=== PATIENT | female | born 1955 ===

== ENCOUNTER → 2016-08-12 | Outpatient (CLI) | payer BC ==
[~2016-08-12] MED LIST: ADVIL200 MG PO; FEMRING0.1 MG/24 VG
== END ==
LOC: COL.RAD 09:08
DX: S73.191A Other sprain of right hip, initial encounter (principal); G57.01 Lesion of sciatic nerve, right lower limb; M70.61 Trochanteric bursitis, right hip; M24.151 Other articular cartilage disorders, right hip; X58.XXXA Exposure to other specified factors, initial encounter
CPT/HCPCS: A9585; Q9967

== ENCOUNTER → 2016-08-17 | Outpatient (CLI) | payer BC | LOC: COL.RAD 07:51 | DX: M25.551 Pain in right hip (principal) | CPT/HCPCS: J3301; Q9967 ==

== ENCOUNTER → 2016-09-08 | Outpatient (CLI) | payer BC | LOC: COL.RAD 08:30 | DX: M25.551 Pain in right hip (principal); M54.5 Low back pain | CPT/HCPCS: J3301; Q9967 ==

== ENCOUNTER → 2016-11-23 | Outpatient (CLI) | payer BC | LOC: COL.RAD 13:12 | DX: M25.551 Pain in right hip (principal) | CPT/HCPCS: J3301; Q9967 ==

== ENCOUNTER → 2017-03-04 | Outpatient (CLI) | payer BC | LOC: COL.RAD 08:36 | DX: M25.552 Pain in left hip (principal) | CPT/HCPCS: J3301; Q9967 ==

== ENCOUNTER → 2017-03-31 | Outpatient (CLI) | payer BC | LOC: MC.RAD 10:33 | DX: Z12.31 Encounter for screening mammogram for malignant neoplasm of breast (principal) ==

== ENCOUNTER → 2017-11-29 | Outpatient (CLI) | payer BC | LOC: MHCPAIN 08:21 | DX: G89.29 Other chronic pain (principal); M54.16 Radiculopathy, lumbar region; M53.3 Sacrococcygeal disorders, not elsewhere classified; M47.817 Spondylosis without myelopathy or radiculopathy, lumbosacral region | CPT/HCPCS: G0463 ==

== ENCOUNTER 2018-05-13 16:00 | Outpatient (RCR) | payer BC | END 2018-06-06 | disposition home or self-care (01) | LOC: WSC | DX: M51.36 Other intervertebral disc degeneration, lumbar region (principal) ==

== ENCOUNTER → 2020-01-26 | Outpatient (CLI) | payer BC | LOC: MC.RAD 07:00 | DX: Z12.31 Encounter for screening mammogram for malignant neoplasm of breast (principal) ==

== ENCOUNTER → 2021-02-20 | Outpatient (CLI) | payer BC | LOC: MC.RAD 11:10 | DX: Z12.31 Encounter for screening mammogram for malignant neoplasm of breast (principal) ==